=== PATIENT | male | born 1995 | race Caucasian/White ===

== ENCOUNTER 2017-02-09 22:07 | Emergency (ER) | payer BC ==
[~2017-02-09] VITALS: Ht 185.4 cm; Wt 81.4 kg
[2017-02-10 01:42] VITALS: BP 110/68
== END 2017-02-10 01:42 | disposition home or self-care (01) ==
LOC: ED 22:07
DX: S93.114A Dislocation of interphalangeal joint of right lesser toe(s), initial encounter (principal); S91.114A Laceration without foreign body of right lesser toe(s) without damage to nail, initial encounter; W22.8XXA Striking against or struck by other objects, initial encounter; Y92.511 Restaurant or cafe as the place of occurrence of the external cause
CPT/HCPCS: 90715; A4550; J1885; J2270

== ENCOUNTER → 2018-01-14 | Outpatient (CLI) | payer BC | LOC: RAD 11:13 | DX: M54.9 Dorsalgia, unspecified (principal); G89.29 Other chronic pain ==

== ENCOUNTER → 2018-03-17 | Outpatient (CLI) | payer BC ==
[2018-03-17 08:00] LABS: CALCIUM 9.4 mg/dL (8.4-10.2); POTASSIUM 4.6 mmol/L (3.6-5.0); TOTAL BILIRUBIN 0.4 mg/dL (0.2-1.3); TOTAL PROTEIN 7.1 g/dL (6.3-8.2)
[2018-03-17 22:22] LABS: FOLLICLE STIMULATING HORMONE 3.3 mIU/mL (1.0-12.0); LUTENIZING HORMONE 5.7 mIU/mL (0.6-12.1); PROLACTIN 18.5 ng/mL (3.5-19.4); TESTOSTERONE 880 ng/dL (240-871)
== END ==
LOC: LAB 06:17
PROVIDERS: Nurse Practitioner Family
DX: N52.9 Male erectile dysfunction, unspecified (principal)

== ENCOUNTER 2018-04-27 21:02 | Emergency (ER) | payer BC ==
[2018-04-27] MEDS ORDERED: FINASTERIDE5 M1 PO (22:51)
[2018-04-27 22:58] LABS: HEMATOCRIT 42.3 % (42.0-52.0); HEMOGLOBIN 14.3 g/dL (13.5-18.0); MEAN CELL VOLUME 87 fl (78-100); MEAN CORPUSCULAR HEMOGLOBIN 30 pg (27-31); MEAN CORPUSCULAR HGB CONC 34 g/dL (33-37); MEAN PLATELET VOLUME 9.1 fl (7.4-10.4); PLATELET COUNT 173 K/mm3 (130-400); RED BLOOD COUNT 4.85 M/mm3 (4.20-5.60); RED CELL DISTRIBUTION WIDTH 12.5 % (11.5-14.5); WHITE BLOOD COUNT 4.2 K/mm3 (4.8-10.8)
[2018-04-27 23:09] LABS: ALBUMIN 4.1 g/dL (3.5-5.0); CALCIUM 8.9 mg/dL (8.4-10.2); POTASSIUM 4.5 mmol/L (3.6-5.0); TOTAL BILIRUBIN 0.6 mg/dL (0.2-1.3); TOTAL PROTEIN 7.3 g/dL (6.3-8.2)
[2018-04-27 23:21] LABS: BAND 3 % (0-10)
[2018-04-27 23:21] LABS: STREP SCREEN NEGATIVE (NEGATIVE)
[2018-04-27 23:22] LABS: LYMPHOCYTE 38 % (20-51); MONOCYTE 10 % (3-10); NEUTROPHILS 43 % (42-75)
[2018-04-27 23:47] VITALS: BP 121/71
[2018-04-28 00:20] LABS: PH-URINE 6.5 (5.0 - 8.0); URINE APPEARANCE CLEAR; URINE BILIRUBIN NEGATIVE (NEGATIVE); URINE BLOOD NEGATIVE (NEGATIVE); URINE COLOR YELLOW; URINE GLUCOSE NEGATIVE (NEGATIVE); URINE KETONE NEGATIVE (NEGATIVE); URINE LEUKOCYTE ESTERASE NEGATIVE (NEGATIVE); URINE NITRATE NEGATIVE (NEGATIVE); URINE PROTEIN(semi-quant) NEGATIVE (NEGATIVE); URINE UROBILINOGEN NORMAL (NORMAL); URINE WBC 0-1 /hpf (0-3)
== END 2018-04-27 23:49 | disposition home or self-care (01) ==
LOC: ED 21:02
PROVIDERS: Nurse Practitioner
DX: B27.90 Infectious mononucleosis, unspecified without complication (principal); R05 Cough; R00.0 Tachycardia, unspecified; Z79.899 Other long term (current) drug therapy

== ENCOUNTER → 2019-05-20 | Outpatient (CLI) | payer BC ==
[~2019-05-20] MED LIST: FINASTERIDE5 M1 PO
== END ==
LOC: RAD 09:56
DX: N49.2 Inflammatory disorders of scrotum (principal)

== ENCOUNTER → 2021-06-18 | Outpatient (CLI) | payer BC ==
[2021-06-18 16:10] LABS: BASO # 0.03 K/mm3 (0.02-0.10); EOS # 0.26 K/mm3 (0.04-0.40); EOS % 3.3 % (0.0-4.0); LYMPH# 2.49 K/mm3 (1.50-4.00); MEAN CELL VOLUME 89 fl (78-100); MEAN CORPUSCULAR HEMOGLOBIN 31 pg (27-31); MEAN CORPUSCULAR HGB CONC 34 g/dL (33-37); MEAN PLATELET VOLUME 8.5 fl (7.4-10.4); MONO # 0.62 K/mm3 (0.20-0.80); PLATELET COUNT 260 K/mm3 (130-400); RED BLOOD COUNT 4.92 M/mm3 (4.20-5.60); RED CELL DISTRIBUTION WIDTH 12.2 % (11.5-14.5); WHITE BLOOD COUNT 7.8 K/mm3 (4.8-10.8)
[2021-06-18 16:19] LABS: POTASSIUM 4.3 mmol/L (3.5-5.1)
[2021-06-18 16:20] LABS: ALBUMIN 4.4 g/dL (3.5-5.0)
[2021-06-18 16:22] LABS: TOTAL PROTEIN 7.5 g/dL (6.4-8.3)
[2021-06-18 16:24] LABS: TOTAL BILIRUBIN 0.7 mg/dL (0.2-1.2)
== END ==
LOC: LAB 15:51
PROVIDERS: Internal Medicine
DX: Z00.00 Encounter for general adult medical examination without abnormal findings (principal)

== ENCOUNTER → 2022-10-28 | Outpatient (CLI) | payer BC ==
[2022-10-28 09:38] LABS: BASO # 0.05 K/mm3 (0.02-0.10); EOS # 0.66 K/mm3 (0.04-0.40); EOS % 9.8 % (0.0-4.0); HEMATOCRIT 43.4 % (42.0-52.0); HEMOGLOBIN 14.7 g/dL (13.5-18.0); LYMPH# 1.82 K/mm3 (1.50-4.00); MEAN CELL VOLUME 93 fl (78-100); MEAN CORPUSCULAR HEMOGLOBIN 32 pg (27-31); MEAN CORPUSCULAR HGB CONC 34 g/dL (33-37); MEAN PLATELET VOLUME 8.7 fl (7.4-10.4); MONO # 0.81 K/mm3 (0.20-0.80); PLATELET COUNT 261 K/mm3 (130-400); RED BLOOD COUNT 4.66 M/mm3 (4.20-5.60); RED CELL DISTRIBUTION WIDTH 12.4 % (11.5-14.5); WHITE BLOOD COUNT 6.8 K/mm3 (4.8-10.8)
[2022-10-28 09:46] LABS: POTASSIUM 4.4 mmol/L (3.5-5.1); SODIUM 138 mmol/L (136-145)
[2022-10-28 09:47] LABS: ALBUMIN 4.1 g/dL (3.5-5.0)
[2022-10-28 09:48] LABS: CALCIUM 9.6 mg/dL (8.3-10.5)
[2022-10-28 09:49] LABS: GLUCOSE 97 mg/dL (75-110); TOTAL PROTEIN 6.6 g/dL (6.4-8.3)
[2022-10-28 09:50] LABS: CARBON DIOXIDE 27 mmol/L (22-29)
[2022-10-28 09:51] LABS: TOTAL BILIRUBIN 0.5 mg/dL (0.2-1.2)
[2022-10-28 09:54] LABS: AST-SGOT 73 U/L (5-34)
[2022-10-28 09:56] LABS: ALT/SGPT 43 U/L (0-55)
[2022-10-28 11:21] LABS: ERYTHROCYTE SEDIMENTATION RATE 3 mm/hr (0-15)
== END ==
LOC: LAB 08:55
PROVIDERS: Internal Medicine
DX: Z00.00 Encounter for general adult medical examination without abnormal findings (principal); F90.0 Attention-deficit hyperactivity disorder, predominantly inattentive type; K92.1 Melena

== ENCOUNTER → 2024-09-16 | Outpatient (CLI) | payer BC ==
[2024-09-16 09:21] LABS: ALBUMIN 4.3 g/dL (3.5-5.0)
[2024-09-16 09:22] LABS: CALCIUM 9.3 mg/dL (8.3-10.5)
[2024-09-16 09:24] LABS: TOTAL PROTEIN 6.9 g/dL (6.4-8.3)
[2024-09-16 09:26] LABS: TOTAL BILIRUBIN 0.6 mg/dL (0.2-1.2)
[2024-09-16 09:52] LABS: HEMATOCRIT 43.4 % (42.0-52.0); HEMOGLOBIN 14.5 g/dL (13.5-18.0); MEAN PLATELET VOLUME 9.1 fl (7.4-10.4); RED BLOOD COUNT 4.93 M/mm3 (4.20-5.60); RED CELL DISTRIBUTION WIDTH 13.5 % (11.5-14.5); WHITE BLOOD COUNT 4.6 K/mm3 (4.8-10.8)
== END ==
LOC: LAB 08:52
PROVIDERS: Internal Medicine
DX: Z00.00 Encounter for general adult medical examination without abnormal findings (principal)